=== PATIENT | female | born 1940 | race Caucasian/White ===

== ENCOUNTER 2016-10-11 16:18 | Emergency (ER) | payer OTHER ==
[~2016-10-11] VITALS: Ht 167.6 cm; Wt 94.5 kg
[~2016-10-11 16:18] MED LIST: AMLODIPINE BESYL5 MG PO; ASPIR 8181 M1 PO; CLONIDINE HCL0.2 MG PO; HYDROCHLOROTH12.5 M3 PO; Hydrodiuril,Oretic,E PO; LAMICTAL XR200 MG PO; LAMOTRIGINE100 MG PO; LEVOTHROID,S0.075 MG PO; LISINOPRIL20 MG PO; LOPRESSOR25 MG PO; MOTRIN800 MG PO; MULTIVITAMIN; NAPROSYN500 MG PO; NORVASC5 MG PO; PRINIVIL20 MG PO; TYLENOL WITH C1 EACH PO
[2016-10-11 17:20] LABS: MCH 29.1 PG (29.0-34.0); MCHC 33.1 G/DL (30.0-36.0); MCV 88.1 FL (83-99); MEAN PLAT.VOLUME 9.6 uM^3 (9.5-12.4); PLATELET COUNT 285 K/uL (156-360); RBC DIS.WIDTH-CV 13.6 % (11.8-14.6); RBC DIS.WIDTH-SD 43.7 % (39-53); RED BLOOD COUNT 4.77 M/uL (3.80-5.20); WHITE BLOOD COUNT 9.5 K/uL (4.1-10.2)
[2016-10-11 17:38] LABS: CHLORIDE 104 mEq/L (99-109); POTASSIUM 3.8 mEq/L (3.7-5.4); SODIUM 140 mEq/L (136-147)
[2016-10-11 17:39] LABS: GLUCOSE 104 mg/dL (70-99)
[2016-10-11 17:41] LABS: ANION GAP 13 MEQ/L (2-14)
[2016-10-11 17:43] LABS: GFR ESTIMATE (CALCULATED) > 59 mL/min/; TROP-I INTERPRETATION NEGATIVE; TROPONIN-I < 0.01 ng/mL (0.0-0.30)
[2016-10-11 17:44] LABS: UREA NITROGEN (BUN) 13 mg/dL (9-23)
[2016-10-11 19:10] LABS: TOTAL BILIRUBIN 0.3 mg/dL (0.0-1.0)
[2016-10-11 19:11] LABS: ALKALINE PHOSPHATASE 51 IU/L (3-129)
[2016-10-11 19:14] LABS: DIRECT BILIRUBIN 0.1 mg/dL (0.0-0.3)
[2016-10-11 19:15] LABS: LIPASE 12 U/L (1.0-51.0)
[2016-10-11 19:20] LABS: BILIRUBIN NEGATIVE; BLOOD NEGATIVE; COLOR YELLOW ((YELLOW)); GLUCOSE (STRIP) NEGATIVE; KETONES NEGATIVE; LEUKOCYTES NEGATIVE; NITRITE NEGATIVE; PROTEIN (STRIP) NEGATIVE; SPECIFIC GRAVITY 1.015 (1.000-1.030); UROBILINOGEN 0.2 MG/DL (0.2-1.0)
[2016-10-11 19:21] LABS: ADD MIUA? NO; UCUL ADDED? NO
[2016-10-11 20:41] LABS: TROP-I INTERPRETATION NEGATIVE; TROPONIN-I < 0.01 ng/mL (0.0-0.30)
[2016-10-11] MEDS ORDERED: TYLENOL WITH C1 EACH PO (22:17)
[2016-10-11 22:57] VITALS: BP 162/59
== END 2016-10-11 22:57 | disposition home or self-care (01) ==
LOC: EME 16:18
PROVIDERS: Physician Assistant Medical
DX: M54.5 Low back pain (principal); M79.601 Pain in right arm; R07.89 Other chest pain; S30.1XXA Contusion of abdominal wall, initial encounter; W18.30XA Fall on same level, unspecified, initial encounter; I10 Essential (primary) hypertension; Z79.82 Long term (current) use of aspirin; F17.200 Nicotine dependence, unspecified, uncomplicated
CPT/HCPCS: 70450; 71020; 71275; 72125; 73060; 74177; 80048; 80076; 81003; 83690; 84484; 85027; 93005; 99281; 99284; J7030

== ENCOUNTER 2016-11-15 10:22 | Emergency (ER) | payer OTHER ==
[~2016-11-15] VITALS: Ht 167.6 cm; Wt 92.8 kg
[2016-11-15] MEDS ORDERED: VALIUM2 MG PO (17:10)
[2016-11-15] MEDS ORDERED: MOTRIN600 MG PO (17:10)
[2016-11-15] MEDS ORDERED: ULTRACET1 TABLET PO (17:10)
[2016-11-15 17:26] VITALS: BP 140/70
== END 2016-11-15 17:27 | disposition home or self-care (01) ==
LOC: EME 10:22
DX: S39.012A Strain of muscle, fascia and tendon of lower back, initial encounter (principal); S16.1XXA Strain of muscle, fascia and tendon at neck level, initial encounter; V49.49XA Driver injured in collision with other motor vehicles in traffic accident, initial encounter; Y92.510 Bank as the place of occurrence of the external cause; F17.200 Nicotine dependence, unspecified, uncomplicated; M51.37 Other intervertebral disc degeneration, lumbosacral region; I10 Essential (primary) hypertension
CPT/HCPCS: 72040; 72131; 99281; 99284

== ENCOUNTER 2017-10-26 08:30 | Observation (INO) | payer OTHER ==
[~2017-10-26] VITALS: Ht 172.7 cm; Wt 92.8 kg
[~2017-10-26 08:30] MED LIST changes: +MOTRIN600 MG PO; +ULTRACET1 TABLET PO; +VALIUM2 MG PO
[2017-10-26 09:20] LABS: BASOPHIL (%) 0.2 % (0-1); EOSINOPHIL (%) 0.2 % (0-5); HEMATOCRIT 43.1 % (36.0-46.0); HEMOGLOBIN 14.5 G/DL (11.9-15.5); IMMATURE GRANULOCYTE (%) 0.5 % (0.0-0.7); LYMPHOCYTE (%) 17.6 % (15-42); MCH 29.7 PG (29.0-34.0); MCHC 33.6 G/DL (30.0-36.0); MCV 88.1 FL (83-99); MONOCYTE (%) 11.2 % (3-12); MONOCYTE COUNT 0.6 K/uL (0-0.8); NEUTROPHIL (%) 70.3 % (45-76); PLATELET COUNT 227 K/uL (156-360); RBC DIS.WIDTH-CV 13.5 % (11.8-14.6); RBC DIS.WIDTH-SD 43.8 % (39-53); RED BLOOD COUNT 4.89 M/uL (3.80-5.20); WHITE BLOOD COUNT 5.7 K/uL (4.1-10.2)
[2017-10-26 09:26] LABS: INTER. NORMALIZED RATIO 1.1
[2017-10-26 09:28] LABS: PTT 33.4 SEC (25-37)
[2017-10-26 09:33] LABS: CHLORIDE 99 mEq/L (99-109); POTASSIUM 3.9 mEq/L (3.7-5.4); SODIUM 136 mEq/L (136-147)
[2017-10-26 09:34] LABS: GLUCOSE 97 mg/dL (70-99)
[2017-10-26 09:38] LABS: CREATININE 1.1 mg/dL (0.6-1.3); GFR ESTIMATE (CALCULATED) 51 mL/min/
[2017-10-26 09:39] LABS: UREA NITROGEN (BUN) 14 mg/dL (9-23)
[2017-10-26 09:55] LABS: TROP-I INTERPRETATION NEGATIVE; TROPONIN-I 0.01 ng/mL (0.0-0.30)
[2017-10-26] MEDS ORDERED: HYDROCHLOROTHIA25 MG PO (10:31)
[2017-10-26] MEDS ORDERED: PRINIVIL10 MG PO (10:33)
[2017-10-26] MEDS ORDERED: ERGOCALCIF50000 UNIT PO (10:33)
[2017-10-26] MEDS ORDERED: BIAXIN500 MG PO (10:36)
[2017-10-26 14:33] LABS: TROP-I INTERPRETATION NEGATIVE; TROPONIN-I 0.01 ng/mL (0.0-0.30)
[2017-10-26 15:50] VITALS: BP 124/54
[2017-10-26 18:35] VITALS: BP 143/71
[2017-10-26 20:17] LABS: TROP-I INTERPRETATION NEGATIVE; TROPONIN-I < 0.01 ng/mL (0.0-0.30)
[2017-10-27 01:00] VITALS: BP 95/54
[2017-10-27 01:21] VITALS: BP 100/50
[2017-10-27 04:48] VITALS: BP 126/56
[2017-10-27 05:59] LABS: CHLORIDE 103 MEQ/L (99-109); CREATININE 1.1 MG/DL (0.6-1.3); GFR ESTIMATE (CALCULATED) 51 mL/min/; GLUCOSE 89 mg/dL (70-99); SODIUM 136 MEQ/L (136-147); UREA NITROGEN (BUN) 14 mg/dL (9-23)
[2017-10-27] MEDS ORDERED: OSELTAMIVIR PHO30 MG PO (09:39)
[2017-10-27] MEDS ORDERED: BENZONATATE100 MG PO (09:40)
[2017-10-27] MEDS ORDERED: TORADOL10 MG PO (09:41)
[2017-10-27 11:26] VITALS: BP 106/60
== END 2017-10-27 13:02 | disposition home or self-care (01) ==
LOC: EME → EDBD 08:30 → EME 08:30 → EDOF 10:20 → 5WEST 10:20 → ENRESERV 10:21 → EDOF 15:43 → ENRESERV 17:30 → 5WEST 18:14
PROVIDERS: Emergency Medicine; Internal Medicine
DX: R07.89 Other chest pain (principal); J10.1 Influenza due to other identified influenza virus with other respiratory manifestations; M54.9 Dorsalgia, unspecified; I10 Essential (primary) hypertension; E78.5 Hyperlipidemia, unspecified; E03.9 Hypothyroidism, unspecified; F17.200 Nicotine dependence, unspecified, uncomplicated; E66.9 Obesity, unspecified; Z68.31 Body mass index [BMI] 31.0-31.9, adult; I25.10 Atherosclerotic heart disease of native coronary artery without angina pectoris; I25.84 Coronary atherosclerosis due to calcified coronary lesion; Z82.49 Family history of ischemic heart disease and other diseases of the circulatory system; Z90.49 Acquired absence of other specified parts of digestive tract; Z90.710 Acquired absence of both cervix and uterus; Z88.0 Allergy status to penicillin; Z88.2 Allergy status to sulfonamides; Z88.1 Allergy status to other antibiotic agents
CPT/HCPCS: 71045; 71275; 80048; 84484; 85025; 85610; 85730; 93005; 93306; 99281; 99285; G0378; J1650; J3010; J7030